=== PATIENT | female | born 1995 | race African-American/Black ===

== ENCOUNTER 2020-06-25 14:57 | Emergency (ER) | payer MEDICAID ==
[~2020-06-25] VITALS: Ht 144.8 cm; Wt 73.0 kg
[2020-06-25 15:13] VITALS: BP 141/79
== END 2020-06-25 17:48 | disposition home or self-care (01) ==
LOC: ER 14:57
DX: M25.571 Pain in right ankle and joints of right foot (principal); Z90.49 Acquired absence of other specified parts of digestive tract; W10.8XXA Fall (on) (from) other stairs and steps, initial encounter; Y93.89 Activity, other specified; Y92.018 Other place in single-family (private) house as the place of occurrence of the external cause
CPT/HCPCS: 73610; 73630; 99284

== ENCOUNTER 2022-02-22 10:14 | Emergency (ER) | payer MEDICAID ==
[~2022-02-22] VITALS: Ht 167.6 cm; Wt 59.0 kg
[2022-02-22 10:44] VITALS: BP 128/72
[2022-02-22] MEDS: ACETAMINOPHEN 325MG TABLET PO STA ×2 (11:19→11:25)
[2022-02-22 11:36] LABS: BASOPHILS % 0.5 % (0.0-2.0); EOSINOPHILS % 0.6 % (0.0-5.0); HEMATOCRIT. 39.7 % (36.0-48.0); HEMOGLOBIN. 13.4 g/dL (12.0-16.0); LYMPHOCYTES % 34.3 % (20.0-50.0); MEAN CORPUSCULAR HEMOGLOBIN 30.6 pg (28.0-32.0); MEAN CORPUSCULAR VOLUME 90.9 fL (81.0-99.0); MEAN PLATELET VOLUME 10.1 fl (7.4-10.4); MONOCYTES % 8.3 % (2.0-8.0); NEUTROPHILS % 56.3 % (40.0-76.0); PLATELET 221 x1000/uL (130-400); RED BLOOD CELL COUNT 4.37 mill/uL (4.2-5.4); RED CELL DISTRIBUTION WIDTH 13.4 % (11.6-14.6)
[2022-02-22 11:42] LABS: CHLORIDE 102 mEq/L (98-107)
[2022-02-22 12:13] LABS: B-HCG QUANTITATIVE 71171 mIU/mL (<3)
[2022-02-22 12:17] LABS: CLARITY URINE CLOUDY (CLEAR); COLOR URINE YELLOW (YELLOW); KETONES URINE TRACE (NEGATIVE); LEUKOCYTE ESTERASE URINE TRACE (NEGATIVE); NITRITE URINE NEGATIVE (NEGATIVE); OCCULT BLOOD URINE 2+ (NEGATIVE); PH URINE 6.5 (4.5-8.0); PROTEIN URINE TRACE (NEGATIVE); SPECIFIC GRAVITY URINE 1.023 (1.005-1.030)
[2022-02-22] MEDS ORDERED: CEPH500C2 MT (14:10)
== END 2022-02-22 14:30 | disposition home or self-care (01) ==
LOC: ER 10:14
DX: O20.9 Hemorrhage in early pregnancy, unspecified (principal); O23.41 Unspecified infection of urinary tract in pregnancy, first trimester; N39.0 Urinary tract infection, site not specified; Z3A.08 8 weeks gestation of pregnancy
CPT/HCPCS: 36415; 76801; 80053; 81003; 81025; 84702; 85025; 86850; 86900; 99284

== ENCOUNTER 2022-07-16 20:23 | Observation (INO) | payer MEDICAID ==
[~2022-07-16] VITALS: Ht 121.9 cm; Wt 80.3 kg
[~2022-07-16 20:23] MED LIST: CEPH500C2 MT
[2022-07-16] MEDS ORDERED: LACTATED RINGERS 1,000 ML IV ONE (21:45)
[2022-07-16 22:42] LABS: CLARITY URINE CLOUDY (CLEAR); COLOR URINE YELLOW (YELLOW); KETONES URINE 1+ (NEGATIVE); LEUKOCYTE ESTERASE URINE 2+ (NEGATIVE); NITRITE URINE NEGATIVE (NEGATIVE); OCCULT BLOOD URINE NEGATIVE (NEGATIVE); PH URINE 6.5 (4.5-8.0); PROTEIN URINE TRACE (NEGATIVE); SPECIFIC GRAVITY URINE 1.018 (1.005-1.030)
[2022-07-16] MEDS ORDERED: PREN1TAB78 PO (23:32)
== END 2022-07-16 23:30 | disposition home or self-care (01) ==
LOC: 8 EST LDRP 20:23
PROVIDERS: ADMIT Specialist; ATTEND Specialist
DX: O26.893 Other specified pregnancy related conditions, third trimester (principal); R10.31 Right lower quadrant pain; Z3A.28 28 weeks gestation of pregnancy
CPT/HCPCS: 59025; 81003; 96360; G0378; 99281

== ENCOUNTER 2022-10-17 17:56 | Emergency (ER) | payer MEDICAID ==
[~2022-10-17] VITALS: Ht 144.8 cm; Wt 73.0 kg
[~2022-10-17 17:56] MED LIST changes: -CEPH500C2 MT; +PREN1TAB78 PO
[2022-10-17 18:03] VITALS: BP 137/76
[2022-10-17] MEDS ORDERED: FLUORESCEIN SODIUM 1MG/STRIP LEFTEYE ONE (23:30)
[2022-10-17] MEDS ORDERED: TETRACAINE 0.5% OPHTH DROPS 4ML LEFTEYE ONE (23:30)
== END 2022-10-18 | disposition left against medical advice (07) ==
LOC: ER 17:56
DX: H02.89 Other specified disorders of eyelid (principal); J45.909 Unspecified asthma, uncomplicated; Z90.49 Acquired absence of other specified parts of digestive tract
CPT/HCPCS: 99281